=== PATIENT | female | born 1970 | race Caucasian/White ===

== ENCOUNTER 2017-02-14 04:43 | Emergency (ER) | payer OTHER ==
[~2017-02-14] VITALS: Ht 170.2 cm; Wt 72.8 kg
[2017-02-14 05:37] LABS: CHLORIDE 108 mEq/L (99-109); POTASSIUM 3.5 mEq/L (3.7-5.4); SODIUM 140 mEq/L (136-147)
[2017-02-14 05:39] LABS: GLUCOSE 100 mg/dL (70-99)
[2017-02-14 05:41] LABS: ANION GAP 11 MEQ/L (2-14); TOTAL BILIRUBIN 0.5 mg/dL (0.0-1.0)
[2017-02-14 05:43] LABS: ALKALINE PHOSPHATASE 59 IU/L (3-129); GFR ESTIMATE (CALCULATED) > 59 mL/min/
[2017-02-14 05:44] LABS: UREA NITROGEN (BUN) 13 mg/dL (9-23)
[2017-02-14 05:45] LABS: DIRECT BILIRUBIN 0.2 mg/dL (0.0-0.3)
[2017-02-14 05:54] LABS: HEMATOCRIT 40.1 % (36.0-46.0); MCH 20.1 PG (29.0-34.0); MCHC 31.4 G/DL (30.0-36.0); MCV 63.9 FL (83-99); MEAN PLAT.VOLUME 11.9 uM^3 (9.5-12.4); PLATELET COUNT 257 K/uL (156-360); RBC DIS.WIDTH-CV 16.8 % (11.8-14.6); RBC DIS.WIDTH-SD 33.7 % (39-53); RED BLOOD COUNT 6.28 M/uL (3.80-5.20); WHITE BLOOD COUNT 10.2 K/uL (4.1-10.2)
[2017-02-14] MEDS ORDERED: ZOFRAN4 MG PO (06:07)
[2017-02-14 06:11] LABS: LIPASE 39 U/L (1.0-51.0); SAMPLE HEMOLYSIS CHECK 0; SAMPLE ICTERIC CHECK 0; SAMPLE LIPEMIA CHECK 0
[2017-02-14 06:55] VITALS: BP 117/75
== END 2017-02-14 06:56 | disposition home or self-care (01) ==
LOC: EME 04:43 → EDBD 04:43 → EME 06:56
PROVIDERS: Emergency Medicine
DX: R11.2 Nausea with vomiting, unspecified (principal); R10.9 Unspecified abdominal pain; R42 Dizziness and giddiness; R68.83 Chills (without fever)
CPT/HCPCS: 74176; 80048; 80076; 81003; 83690; 85027; 99281; 99285; J1885; J2405; J7030